=== PATIENT | male | born 1945 | race Hispanic/Latino ===

== ENCOUNTER → 2022-07-29 | Outpatient (CLI) | payer MEDICARE ==
[~2022-07-29] MED LIST: DIATRIZOATE MEGL/DIATRIZOA SOD 30 ML BTL PO ONE; IOPAMIDOL 370 MG/ML 100 ML INFUS..BTL INJ ONE; SODIUM CHLORIDE 0.9% 500ML 500 ML ONE
[2022-07-29 08:41] LABS: CREATININE, SERUM 1.32 mg/dL (0.72-1.25)
== END ==
LOC: CT 07:46
PROVIDERS: ATTEND Internal Medicine Gastroenterology
DX: R63.0 Anorexia (principal); R63.4 Abnormal weight loss
CPT/HCPCS: 36415; 74177; 82565; 84520; 96360; J7040; Q9963; Q9967